=== PATIENT | male | born 1945 | race Caucasian/White ===

== ENCOUNTER 2018-06-16 08:25 | Emergency (ER) | payer MEDICARE ==
[2018-06-16 08:41] VITALS: BP 145/79
[2018-06-16] MEDS ORDERED: Sulfamethox/Trimethoprim DS 800/160* TAB PO ONE (08:59)
[2018-06-16] MEDS ORDERED: Cephalexin CAP* 500 MG PO ONE (09:00)
--- NOTE | 2018-06-16 09:03 | UC ---
Hand/Wrist HPI - HPI Summary HPI Summary: 73 yo male was using [employer] yesterday A black locust thorn went through his glove and into the dorsum of his left hand now severe pain and swelling with decreased ROM He is left handed allergic to tetanus shots - History Of Current Complaint Chief Complaint: UCSkin Stated Complaint: LEFT HAND SWELLING Time Seen by Provider: 06/16/18 08:48 Hx Obtained From: Patient Onset/Duration: Sudden Onset, Lasting Hours Severity Initially: Mild Severity Currently: Severe Pain Intensity: 8 Pain Scale Used: 0-10 Numeric Character Of Pain: Aching, Throbbing Aggravating Factor(s): Movement Alleviating Factor(s): Rest Associated Signs And Symptoms: Positive: Swelling, Redness Related History: Dominant Hand Left Hands: 1 - PW 2 - dorsal had edema 3 - unable to fully extend these finger, limited flexion, marked pain with axial compression of ring finger - Allergies/Home Medications Allergies/Adverse Reactions: Allergies Allergy/AdvReac Type Severity Reaction Status Date / Time morphine Allergy GI Upset Verified 06/16/18 08:41 Penicillins Allergy Hives Verified 06/16/18 08:41 PMH/Surg Hx/FS Hx/Imm Hx Previously Healthy: Yes Cardiovascular History: Hypertension - not treated "I don't go to doctors" - Surgical History Surgical History: Yes Surgery Procedure, Year, and Place: hip - Social History Alcohol Use: Daily Alcohol Amount: 4 beers daily Substance Use Type: None Smoking Status (MU): Heavy Every Day Tobacco Smoker Type: Cigarettes Amount Used/How Often: 2/3 PPD Household Exposure Type: Cigarettes Review of Systems All Other Systems Reviewed And Are Negative: Yes Constitutional: Positive: Negative Skin: Positive: Negative Eyes: Positive: Negative ENT: Positive: Negative Respiratory: Positive: Negative Cardiovascular: Positive: Negative Gastrointestinal: Positive: Negative Genitourinary: Positive: Negative Motor: Positive: Negative Neurovascular: Positive: Negative Musculoskeletal: Positive: Arthralgia, Decreased ROM, Edema, Other: - SEE IMAGE Neurological: Positive: Negative Psychological: Positive: Negative Physical Exam Triage Information Reviewed: Yes Appearance: Well-Appearing, No Pain Distress, Well-Nourished Vital Signs: Initial Vital Signs Temp 98.3 F 06/16/18 08:34 Pulse 69 06/16/18 08:34 Resp 18 06/16/18 08:34 BP 145/79 06/16/18 08:34 Pulse Ox 100 06/16/18 08:34 Vital Signs Reviewed: Yes Eyes: Positive: Conjunctiva Clear ENT: Positive: Hearing grossly normal. Negative: Nasal congestion, Nasal drainage, Trismus, Muffled voice, Hoarse voice Neck: Positive: Supple, Nontender, No Lymphadenopathy Respiratory: Positive: Lungs clear, Normal breath sounds, No respiratory distress Cardiovascular: Positive: RRR Musculoskeletal: Positive: Other: - see image Psychological Exam: Normal Skin Exam: Normal Hand/Wrist Course/Dx - Course Course Of Treatment: I informed patient that I was concerned that he had a septic joint as well as cellulilits. I suggested he go straight to the ER for evaluation. I told him he may need surgery and/ or admission. He is currently with his severely autistic daughter who has a seizure disorder. His is working. He states he will go home and find someone to watch his daughter then go to the ER I will inform [facility] to expect him - Differential Dx/Diagnosis Provider Diagnosis: Cellulitis of left hand, Septic joint of left hand Discharge - Sign-Out/Discharge Documenting (check all that apply): Patient Departure All imaging exams completed and their final reports reviewed: No Studies - Discharge Plan Condition: Stable Disposition: HOME-RECOMMEND TO ED Referrals: No Primary Care Phys,NOPCP [Primary Care Provider] - Additional Instructions: You have a serious infection due to the puncture wound to your hand I am concerned the infection may involve a joint This may require surgery and/or admission I will contact the ER to let them know to expect you Please go there as soon as you can - Billing Disposition and Condition Condition: STABLE Disposition: Home-Recommend to ED
== END 2018-06-16 09:08 | disposition home health service (06) ==
LOC: UCCORT 08:25
DX: L03.114 Cellulitis of left upper limb (principal); M00.9 Pyogenic arthritis, unspecified; I10 Essential (primary) hypertension; F17.210 Nicotine dependence, cigarettes, uncomplicated; Z88.0 Allergy status to penicillin; Z88.7 Allergy status to serum and vaccine; Z88.5 Allergy status to narcotic agent
CPT/HCPCS: 99202; A9270-GY; G0463

== ENCOUNTER 2018-09-05 12:57 | Emergency (ER) | payer MEDICARE ==
[2018-09-05 13:32] VITALS: BP 145/93
[2018-09-05] MEDS ORDERED: Meclizine TAB* 12.5 MG PO ONE (13:51)
--- NOTE | 2018-09-05 14:30 | UC ---
Dizzy HPI HPI Summary: 73-year-old male comes in with a chief complaint of dizziness. This dizziness started this morning while he was at work. It is intermittent. It lasts for 5- 10 seconds at a time. The room spins. In between the episodes he feels normal. Movement including standing up makes the vertigo started again or get worse. Denies any difficulty with vision or speech or weakness or numbness. States that he walks normally in between the vertigo episodes. No headache. Does have some chronic rhinorrhea. No ear pain. He has not had these symptoms in the past. He does not take any medications. - History Of Current Complaint Chief Complaint: UCDizziness Stated Complaint: DIZZY Time Seen by Provider: 09/05/18 13:50 Pain Intensity: 0 - Allergies/Home Medications Allergies/Adverse Reactions: Allergies Allergy/AdvReac Type Severity Reaction Status Date / Time morphine Allergy GI Upset Verified 09/05/18 13:28 Penicillins Allergy Hives Verified 09/05/18 13:28 PMH/Surg Hx/FS Hx/Imm Hx Previously Healthy: Yes - Surgical History Surgical History: Yes Surgery Procedure, Year, and Place: hip - Family History Known Family History: Positive: Non-Contributory - Social History Alcohol Use: Daily Alcohol Amount: 5 beers daily Substance Use Type: None Smoking Status (MU): Heavy Every Day Tobacco Smoker Type: Cigarettes Amount Used/How Often: 3/4 PPD Household Exposure Type: Cigarettes Review of Systems All Other Systems Reviewed And Are Negative: Yes Constitutional: Positive: Other - dizziness Skin: Positive: Negative Eyes: Positive: Negative ENT: Positive: Nasal Discharge Respiratory: Positive: Negative Cardiovascular: Positive: Negative Gastrointestinal: Positive: Negative Motor: Positive: Negative Neurovascular: Positive: Negative Musculoskeletal: Positive: Negative Neurological: Positive: Negative Psychological: Positive: Negative Is Patient Immunocompromised?: No Physical Exam Triage Information Reviewed: Yes Appearance: Well-Appearing, No Pain Distress, Well-Nourished Vital Signs: Initial Vital Signs Temp 98 F 09/05/18 13:28 Pulse 56 09/05/18 13:28 Resp 18 09/05/18 13:28 BP 145/93 09/05/18 13:28 Pulse Ox 99 09/05/18 13:28 Vital Signs Reviewed: Yes Eyes: Positive: Conjunctiva Clear, Other: - PERRLA/EOMI, RIGHT BEATING NYSTAGMUS ENT: Positive: Pharynx normal, TMs normal Neck: Positive: Supple Respiratory: Positive: Lungs clear, Normal breath sounds, No respiratory distress Cardiovascular: Positive: RRR Musculoskeletal Exam: Normal Musculoskeletal: Positive: Strength Intact, ROM Intact Neurological Exam: Normal Neurological: Positive: Alert, Muscle Tone Normal, Other: - NO FOCAL NEUROLOGIC DEFICIT, NL SPEECH, NO VISION LOSS, NL FINGER TO NOSE AND HEEL TO ABERNATHY Psychological Exam: Normal Psychological: Positive: Normal Response To Family, Age Appropriate Behavior Skin: Positive: Other - LEFT CHEEK 1.5CM ULCERATION WITH RADHA BORDERS Dizzy Course/Dx - Course Course Of Treatment: On examination the patient has no focal neurologic deficit. Denies diagnoses right beating horizontal only. He has normal finger to nose and heel to abernathy. He is asymptomatic in between the episodes of dizziness. Given this, nation the chance of a stroke is minimal. I discussed all of this with the patient and his . The overall plan is to treat with meclizine and as long as he doesn't improve follow-up his primary care physician. I did let them know if his symptoms persist or they worsen or he ends up with continuous symptoms or signs of stroke is to go directly to the emergency department. Also noted on the left side of his face was a 1.5 cm ulceration with pearly borders which to me appears to be a basal cell cancer. I discussed this with him and I let him know to follow-up with a assistant professor of philosophy as this needs further care to avoid a worse condition. - Differential Dx/Diagnosis Provider Diagnosis: Vertigo, Basal cell carcinoma of face Discharge - Sign-Out/Discharge Documenting (check all that apply): Patient Departure All imaging exams completed and their final reports reviewed: No Studies - Discharge Plan Condition: Stable Disposition: HOME Prescriptions: Meclizine HCl [Motion Sickness Relief] 25 mg PO Q6HR PRN #20 tablet PRN Reason: Vertigo Patient Education Materials: Basal Cell Carcinoma (DC), Vertigo (ED) Referrals: [facility] [place] [facility]FERR[facility] [Outside] Esthela Pelayo [Medical Doctor] - Joce Buenrostro MD [Medical Doctor] - Additional Instructions: FOLLOW UP WITH YOUR DERMATOLOGY FOR THE BASAL CELL CANCER ON THE LEFT SIDE OF YOUR FACE. FOLLOW UP WITH YOUR PRIMARY CARE DOCTOR FOR YOUR VERTIGO. GO TO THE EMERGENCY DEPARTMENT IF YOUR CONDITION DOES NOT IMPROVE OR PERSISTS OR IF IT WORSENS; WEAKNESS, NUMBNESS, DIFFICULTY WITH VISION OR SPEECH, YOU ARE UNABLE TO WALK OR ANY QUESTIONS OR CONCERNS. - Billing Disposition and Condition Condition: STABLE Disposition: Home
== END 2018-09-05 14:41 | disposition home or self-care (01) ==
LOC: UCCORT 12:57
DX: R42 Dizziness and giddiness (principal); C44.310 Basal cell carcinoma of skin of unspecified parts of face; F17.210 Nicotine dependence, cigarettes, uncomplicated
CPT/HCPCS: 81003; 87086; 99212; A9270-GY; G0463

== ENCOUNTER 2018-12-28 09:16 | Emergency (ER) | payer MEDICARE ==
[2018-12-28 09:40] VITALS: BP 151/86
--- NOTE | 2018-12-28 09:50 | UC ---
Hand/Wrist HPI - HPI Summary HPI Summary: Patient is a healthy 73-year-old male here with 2 joint problems. Patient has had 2 days of swelling in his right second PCP joint. Vision had no inciting trauma. Patient of fever, chills, nausea, vomiting. Patient has limited range of motion the finger due to pain. Patient's never had symptoms at this before in any joint in his life. In addition, patient slammed his third finger on his right hand in a door yesterday. Patient cannot take a tetanus shot due to rheumatic fever as a child. Patient has pain in his entire finger with some avulsed skin. Patient does drink 5 cans of beer a day. Medications reviewed - History Of Current Complaint Chief Complaint: UCLaceration Stated Complaint: RIGHT HAND-INDEX/MIDDLE FINGER INJURY Time Seen by Provider: 12/28/18 09:31 Hx Obtained From: Patient Onset/Duration: Sudden Onset, Gradual Onset Pain Intensity: 9 - Allergies/Home Medications Allergies/Adverse Reactions: Allergies Allergy/AdvReac Type Severity Reaction Status Date / Time morphine Allergy GI Upset Verified 12/28/18 09:32 Penicillins Allergy Hives Verified 12/28/18 09:32 Tetanus Vaccines and Toxoid AdvReac See Comment Verified 12/28/18 09:36 Home Medications: Home Medications Acetaminophen 650 mg PO ONCE PRN 12/28/18 [History Confirmed 12/28/18] PMH/Surg Hx/FS Hx/Imm Hx Previously Healthy: Yes - Surgical History Surgical History: Yes Surgery Procedure, Year, and Place: hip - Family History Known Family History: Positive: Non-Contributory - Social History Alcohol Use: Daily Alcohol Amount: 5 beers daily Substance Use Type: None Smoking Status (MU): Heavy Every Day Tobacco Smoker Type: Cigarettes Amount Used/How Often: 3/4 PPD Household Exposure Type: Cigarettes - Immunization History Most Recent Tetanus Shot: unable to take Review of Systems All Other Systems Reviewed And Are Negative: Yes Constitutional: Negative: Fever, Chills Skin: Negative: Rash, Bruising ENT: Negative: Sore Throat, Ear Ache, Nasal Discharge Respiratory: Negative: Shortness Of Breath, Cough Cardiovascular: Negative: Palpitations, Chest Pain Physical Exam - Summary Physical Exam Summary: Vital Signs Reviewed: Yes A+Ox3, no distress Eyes: Conjunctiva Clear, PERRL. EOM intact and full ENT: Hearing grossly normal TM x 2 clear, moist, uvula midline, no exudate, no erythema Neck: Positive: Supple Respiratory: Positive: No respiratory distress, No accessory muscle use + CTA throughout no w/r Cardiovascular: RRR nl s1, s2 no m/r CBT <2 sec abd soft + BS nt/nd no guarding, no distension Musculoskeletal Exam: Right hand: Second finger with swelling and erythema at the PIP joint. No overlying warmth. Patient with limited range of motion both active and passive modality. Third finger with avulsion of skin at the distal finger pad. Patient bony tenderness proximal finger. Patient able to range his finger. Neurological: Positive: Alert, + sensation throughout Psychological: Positive: Normal Response To Family Skin: no rash, no ecchymosis Vital Signs: Initial Vital Signs Temp 98.2 F 12/28/18 09:34 Pulse 64 12/28/18 09:34 Resp 16 12/28/18 09:34 BP 151/86 12/28/18 09:34 Pulse Ox 99 12/28/18 09:34 Hand/Wrist Course/Dx - Course Course Of Treatment: Patient is here with 2 different issues on 2 different fingers. Patient had a traumatic event to his middle finger yesterday. Patient had negative x-ray for fracture. Patient had no suturable wounds. Patient cannot receive tetanus. Patient had local wound care and dressing applied. In addition, patient's had spontaneous swelling and erythema of the PIP joint on his second finger. Patient has limited range of motion. Patient's symptoms are most consistent with gout. Patient x-ray which showed some soft tissue swelling. Patient had no joint effusion. This could represent septic arthritis so patient was given very strict return precautions for returning to the emergency department. - Differential Dx/Diagnosis Provider Diagnosis: Crush injury to finger, Swelling of finger joint Discharge ED - Sign-Out/Discharge Documenting (check all that apply): Patient Departure All imaging exams completed and their final reports reviewed: Yes - Discharge Plan Condition: Stable Disposition: HOME Prescriptions: Ibuprofen TAB* [Motrin TAB* 600 MG] 600 mg PO Q6H 5 Days #20 tab Patient Education Materials: Gout (ED), Crush Injury (ED) Referrals: [facility] [place] [facility] [Outside] Additional Instructions: Please take your medications as prescribed Please go straight to the emergency department if you have fever, warmth at your joint, worsening swelling in your joint - Billing Disposition and Condition Condition: STABLE Disposition: Home
== END 2018-12-28 10:41 | disposition home or self-care (01) ==
LOC: UCCORT 09:16
DX: S67.192A Crushing injury of right middle finger, initial encounter (principal); W23.0XXA Caught, crushed, jammed, or pinched between moving objects, initial encounter; Y92.9 Unspecified place or not applicable; M25.441 Effusion, right hand; F17.210 Nicotine dependence, cigarettes, uncomplicated
CPT/HCPCS: 73140; 99212; G0463

== ENCOUNTER 2019-01-03 09:25 | Emergency (ER) | payer MEDICARE ==
--- OUTSIDE RECORDS SUMMARY | 2019-01-03 09:31 | XMS REPORT | Continuity of Care Document ---
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 Description No Information Available Social History Type Date Description Comments Sex Unknown ETOH Use Uses Alcohol Daily ETOH Use consumes 5-6 beers per day Tobacco Use Start: Unknown Heavy tobacco smoker (more than 10 cigarettes/day) Recreational Drug Use Denies Drug Use Smoking Status Reviewed: 01/02/19 Heavy tobacco smoker (more than 10 cigarettes/day) Allergies, Adverse Reactions, Alerts Active Allergies Reaction Severity Comments Date Penicillin rash 01/02/2019 Morphine anaphylaxis 01/02/2019 Medications Active Medications SIG Qnty Indications Ordering Provider Date Oxycodone-Acetaminophe Take 1 Tablet By Unknown n Mouth Every 4 To 5-325mg Tablets 6 Hours For Pain . DO Not Exceed 6 Per 24 Hours Immunizations Description No Information Available Vital Signs Date Vital Result Comment 01/02/2019 1:26pm BP Systolic Sitting Left Arm 131 mmHg BP Diastolic Sitting Left Arm 77 mmHg Body Temperature 97.8 F Heart Rate 58 /min Height 68 inches 5'8" Weight 122.00 lb BMI (Body Mass Index) 18.5 kg/m2 BSA (Body Surface Area) 1.66 m2 [place] body weight in kilograms 70 kg O2 % BldC Oximetry 99 % Results Description No Information Available Procedures Description No Information Available Medical Devices Description No Information Available Encounters Description No Information Available Assessments Date Code Description Provider 01/02/2019 [id number] Idiopathic chronic gout, unspecified site, Michelle Swartz MD with eusebio (tophi) Plan of Treatment 01/02/2019 - Michelle Swartz, [id number] Idiopathic chronic gout, unspecified site, with tophus (tophi) Functional Status Description No Information Available Mental Status Description No Information Available Referrals Refer to Reason for Referral Status Appt Date Vince Serna MD Right Finger Mass Scheduled 01/04/[address] [place] [address] [phone]
[2019-01-03] MEDS ORDERED: Lidocaine 2% PF * 5 ML VIAL INJ ONE (10:04)
--- NOTE | 2019-01-03 10:21 | UC ---
Hand/Wrist HPI - HPI Summary HPI Summary: right index finger pain and swelling x 7 days pain is severe 10 out of 10 , worse by touch , nothing makes it better hasn't been sleeping for 3 days was seen on 12/28 for the finger pain , was diagnosed with gout , not improving with NSAIDs and getting more red / swollen, painful over the past 3 days no fever, no chills - History Of Current Complaint Chief Complaint: UCUpperExtremity Stated Complaint: RECHECK-RT HAND INDEX FINGER Time Seen by Provider: 01/03/19 09:38 Hx Obtained From: Patient Onset/Duration: Gradual Onset, Lasting Days - 7, Still Present, Worse Since - past 3 days Severity Initially: Moderate Severity Currently: Severe Pain Intensity: 10 Character Of Pain: Throbbing Aggravating Factor(s): Movement Alleviating Factor(s): Nothing Associated Signs And Symptoms: Positive: Swelling, Redness. Negative: Fever - Allergies/Home Medications Allergies/Adverse Reactions: Allergies Allergy/AdvReac Type Severity Reaction Status Date / Time morphine Allergy GI Upset Verified 01/03/19 09:39 Penicillins Allergy Hives Verified 01/03/19 09:39 Tetanus Vaccines and Toxoid AdvReac See Comment Verified 01/03/19 09:39 Home Medications: Home Medications Naproxen Sodium [Naproxen 220 mg] 2 tab PO ONCE 01/03/19 [History Confirmed 06/19] Oxycodone TAB(NF) [Oxycodone HCl 10 MG] 1 tab PO ONCE 01/03/19 [History Confirmed 01/03/19] PMH/Surg Hx/FS Hx/Imm Hx - Additional Past Medical History Additional PMH: rheumatic fever, MRSA - Surgical History Surgical History: Yes Surgery Procedure, Year, and Place: hip - Family History Known Family History: Positive: Non-Contributory - Social History Alcohol Use: Daily Alcohol Amount: 5 beers daily Substance Use Type: None Smoking Status (MU): Heavy Every Day Tobacco Smoker Type: Cigarettes Amount Used/How Often: 3/4 PPD Household Exposure Type: Cigarettes - Immunization History Most Recent Tetanus Shot: unable to take Review of Systems All Other Systems Reviewed And Are Negative: Yes Constitutional: Positive: Negative Eyes: Positive: Negative ENT: Positive: Negative Respiratory: Positive: Negative Is Patient Immunocompromised?: No Physical Exam Triage Information Reviewed: Yes Appearance: Well-Nourished, Pain Distress Vital Signs: Initial Vital Signs Temp 97.1 F 01/03/19 09:33 Pulse 52 01/03/19 09:33 Resp 18 01/03/19 09:33 BP 170/123 01/03/19 09:33 Pulse Ox 100 01/03/19 09:33 Vital Signs Reviewed: Yes Eye Exam: Normal Eyes: Positive: Conjunctiva Clear ENT: Positive: Normal ENT inspection Neck: Positive: Supple, Nontender, No Lymphadenopathy Respiratory: Positive: Chest non-tender, Lungs clear, Normal breath sounds Cardiovascular: Positive: RRR, No Murmur Abdominal Exam: Normal Musculoskeletal: Positive: Other: - right index finger : + erythem / swelling at PIP , + flucturent, very tender , limited ROM Skin: Positive: Other - skin lesion / erosion left lower fack / chin area , pt has had this lesion for over 2 years / not healing, concern about skin ca, will make a referral to Derm Procedures - Incision and Drainage Right Finger Site: right index finger abscess at PIP Anesthesia: Digital - 5 cc 2 % lidocaine Instrument(s): Scalpel - #11, Needle - 25 g Packing: Drain Diagnostics - Radiology No standard instances Radiology Interpretation Completed By: Radiologist Summary of Radiographic Findings: right index finger : IMPRESSION: SOFT TISSUE SWELLING WITHOUT ASSOCIATED EROSION OR PERIOSTEAL REACTION. PLAIN RADIOGRAPH FINDINGS OF OSTEOMYELITIS ARE RELATIVELY LATE FINDINGS. IF THERE IS PERSISTENT CLINICAL CONCERN FOR OSTEOMYELITIS, RECOMMEND CORRELATION WITH FOLLOWUP IMAGING , THREE-PHASE BONE SCANNING, WHITE BLOOD CELL SCAN, AND/OR MRI OF THE AFFECTED REGION. Hand/Wrist Course/Dx - Differential Dx/Diagnosis Provider Diagnosis: Abscess of finger of right hand, Skin lesion of face Discharge ED - Sign-Out/Discharge Documenting (check all that apply): Patient Departure All imaging exams completed and their final reports reviewed: Yes - Discharge Plan Condition: Stable Disposition: HOME Prescriptions: Clindamycin Cap(NF) [Clindamycin Cap 300 mg Cap(NF)] 300 mg PO Q6H #40 cap Patient Education Materials: Basal Cell Carcinoma (DC), Abscess (ED) Referrals: Joce Buenrostro MD [Medical Doctor] - As Soon As Possible No Primary Care Phys,NOPCP [Primary Care Provider] - Additional Instructions: please keep your appointment with ortho. tomorrow for follow up facial skin lesion / concern about skin cancer referral to dermatology for evaluation and tx - Billing Disposition and Condition Condition: STABLE Disposition: Home
[2019-01-03 10:52] VITALS: BP 144/72
--- NOTE | 2019-01-06 11:36 | UC ---
- Progress Note Progress Note: Lab report reviewed today from the wound stain: Left called with the critical report. Nocardia species: nocardia farcinica Patient was started on clindamycin and refer to orthopedics RN to call the patient and informed of the results, still awaiting final culture reports. Plan to switch to Bactrim which is the first line treatment for nocardia species. Patient sometimes need long-term treatment for relapses. Patient should keep up his appointment with orthopedics / dermatology and also recommend to consult infectious disease. I will put in the referral in the discharge . Course/Dx - Diagnoses Provider Diagnoses: Abscess of finger of right hand, Skin lesion of face Discharge ED - Sign-Out/Discharge Documenting (check all that apply): Post-Discharge Follow Up All imaging exams completed and their final reports reviewed: Yes - Discharge Plan Condition: Stable Disposition: HOME Prescriptions: Clindamycin Cap(NF) [Clindamycin Cap 300 mg Cap(NF)] 300 mg PO Q6H #40 cap Sulfamethox/Trimethoprim DS* [Bactrim DS 800/160 TAB*] 1 tab PO BID 10 Days #20 tab Patient Education Materials: Basal Cell Carcinoma (DC), Abscess (ED) Referrals: Joce Buenrostro MD [Medical Doctor] - As Soon As Possible No Primary Care Phys,NOPCP [Primary Care Provider] - Raquel NORRIS,Cheikh Garcia [Medical Doctor] - As Soon As Possible Additional Instructions: please keep your appointment with ortho. tomorrow for follow up facial skin lesion / concern about skin cancer referral to dermatology for evaluation and tx - Billing Disposition and Condition Condition: STABLE Disposition: Home
== END 2019-01-03 10:59 | disposition home or self-care (01) ==
LOC: UCCORT 09:25
DX: L02.511 Cutaneous abscess of right hand (principal)
CPT/HCPCS: 10060; 73140; 87070; 87077; 87205; 99212; G0463

== ENCOUNTER 2019-04-26 12:46 | Emergency (ER) | payer MEDICARE ==
[2019-04-26 13:19] VITALS: BP 121/79
[2019-04-26 13:33] LABS: Influenza B Molecular POSITIVE (Negative)
--- NOTE | 2019-04-26 13:35 | UC ---
FLU HPI - History of Current Complaint Chief Complaint: UCRespiratory Stated Complaint: CHILLS COUGH Pain Intensity: 9 - Allergy/Home Medications Allergies/Adverse Reactions: Allergies Allergy/AdvReac Type Severity Reaction Status Date / Time morphine Allergy GI Upset Verified 04/26/19 13:14 Penicillins Allergy Hives Verified 04/26/19 13:14 Tetanus Vaccines and Toxoid AdvReac See Comment Verified 04/26/19 13:14 PMH/Surg Hx/FS Hx/Imm Hx - Surgical History Surgical History: Yes Surgery Procedure, Year, and Place: hip - Family History Known Family History: Positive: Non-Contributory - Social History Alcohol Use: Daily Alcohol Amount: 5 beers daily Substance Use Type: None Smoking Status (MU): Heavy Every Day Tobacco Smoker Type: Cigarettes Amount Used/How Often: 3/4 PPD Household Exposure Type: Cigarettes - Immunization History Most Recent Tetanus Shot: unable to take Review of Systems All Other Systems Reviewed And Are Negative: Yes Constitutional: Positive: Fever - 101.9 max, Chills, Fatigue ENT: Positive: Sinus Congestion. Negative: Sore Throat Respiratory: Positive: Cough - mild productive clear sputum. Negative: Shortness Of Breath Cardiovascular: Positive: Negative Gastrointestinal: Positive: Negative Musculoskeletal: Positive: Myalgia Neurological: Positive: Negative Physical Exam - Summary Physical Exam Summary: Vital Signs Reviewed: Yes A+Ox3, no distress, ill-appearing Eyes: Conjunctiva Clear ENT: Hearing grossly normal TM x 2 clear, moist, uvula midline, no exudate, no erythema Neck: Positive: Supple Respiratory: Positive: No respiratory distress, No accessory muscle use + CTA throughout no w/r Cardiovascular: RRR nl s1, s2 no m/r Musculoskeletal Exam: JORDAN x 4 without difficulty Neurological: Positive: Alert Psychological: Positive: age appropriate behavior Skin: Positive: no rash, no ecchymosis Vital Signs: Initial Vital Signs Temp 99.7 F 04/26/19 13:15 Pulse 80 04/26/19 13:15 Resp 24 04/26/19 13:15 BP 121/79 04/26/19 13:15 Pulse Ox 97 04/26/19 13:15 Flu Course/Dx - Course Course Of Treatment: Rapid flu positive. Febrile at 99.7 here but VS WNL otherwise. Lung sounds clear. I treated patient with Tamiflu and instructed to continue with symptomatic treatment. Instructed to follow up with pcp for any new or worsening symptoms. Patient voiced understanding and agreed with treatment plan. - Differential Dx/Diagnosis Differential Diagnosis/HQI/PQRI: Influenza, Upper Respiratory Infection Provider Diagnosis: Influenza B Discharge ED - Sign-Out/Discharge Documenting (check all that apply): Patient Departure All imaging exams completed and their final reports reviewed: No Studies - Discharge Plan Condition: Stable Disposition: HOME Prescriptions: Oseltamivir CAP* [Tamiflu CAP*] 75 mg PO BID #10 cap Patient Education Materials: Influenza (ED) Referrals: Cheli Nagy MD [Primary Care Provider] - If Needed Additional Instructions: As discussed, you tested positive for influenza today. Take tamiflu as prescribed. You may take tylenol or ibuprofen for fever and pain relief. Get plenty of rest and increase your fluid intake. Follow up with your primary care provider if symptoms do not resolve within 5-7 days. Go to the emergency room with any new or worsening symptoms. - Billing Disposition and Condition Condition: STABLE Disposition: Home - Attestation Statements Provider Attestation: I was available for consult. This patient was seen by the FABIOLA. The patient was not presented to, seen by, or examined by me. -Dixon
== END 2019-04-26 13:59 | disposition home or self-care (01) ==
LOC: UCCORT 12:46
DX: J10.1 Influenza due to other identified influenza virus with other respiratory manifestations (principal); F17.210 Nicotine dependence, cigarettes, uncomplicated; Z88.0 Allergy status to penicillin; Z88.5 Allergy status to narcotic agent; Z88.7 Allergy status to serum and vaccine
CPT/HCPCS: 99212; G0463